=== PATIENT | female | born 1995 | race American Indian/Alaskan Native ===

== ENCOUNTER → 2016-07-31 | Outpatient (CLI) | payer OTHER ==
[~2016-07-31] MED LIST: DOCU-30 PO; IBUP-1222 PO; OXYC-302 PO; PNV1TABL4 PO
== END | disposition home or self-care (01) ==
LOC: CFH 07:57
PROVIDERS: ATTEND Nurse Practitioner Family
DX: K76.0 Fatty (change of) liver, not elsewhere classified (principal); R16.1 Splenomegaly, not elsewhere classified; Z90.49 Acquired absence of other specified parts of digestive tract
CPT/HCPCS: 76700

== ENCOUNTER 2016-09-21 14:07 | Emergency (ER) | payer OTHER ==
[~2016-09-21] VITALS: Ht 172.7 cm; Wt 125.0 kg
[2016-09-21] MEDS ORDERED: MAALOX/HYOSCYAMINE/LIDOCAINE 45 ML BOTTLE PO ONE (15:30)
[2016-09-21] MEDS ORDERED: MAALOX/HYOSCYAMINE/LIDOCAINE 45 ML BOTTLE ONE (15:32)
[2016-09-21 16:00] LABS: BLOOD UREA NITROGEN 15 mg/dL (7-18)
[2016-09-21 16:07] LABS: ASPARTATE AMINO TRANSFERASE 17 U/L (15-37)
[2016-09-21 16:39] VITALS: BP 117/61
== END 2016-09-21 16:42 | disposition home or self-care (01) ==
LOC: ED 15:18
DX: K29.50 Unspecified chronic gastritis without bleeding (principal); R10.12 Left upper quadrant pain; G89.29 Other chronic pain; Z90.49 Acquired absence of other specified parts of digestive tract
CPT/HCPCS: 36415; 74020; 80053; 83690; 84703; 85025; 99285